=== PATIENT | female | born 1955 | race African-American/Black ===

== ENCOUNTER 2017-05-28 13:54 | Inpatient (IN) | payer MEDICAID, OTHER ==
[~2017-05-28] VITALS: Ht 167.6 cm; Wt 140.2 kg
[~2017-05-28 13:54] MED LIST: ALLO100T PO; AMLO10TA4 PO; BENA20TA3 PO; COLC0.6T2 PO; HYDR-3927 PO; TRAM50TA73 PO
[2017-05-28] MEDS ORDERED: IOHEXOL-350 100 ML BOTTLE ONE (14:55)
[2017-05-28] MEDS ORDERED: SODIUM CHLORIDE 0.9% 10ML VIAL ONE (14:55)
[2017-05-28] MEDS ORDERED: ONDANSETRON HCL 4MG/2ML VIAL IV STA (14:56)
[2017-05-28] MEDS ORDERED: MORPHINE SULFATE 4 MG/ML CPJ (NOT FOR IM USE) IV STA (14:56)
[2017-05-28] MEDS ORDERED: HYDRALAZINE 20MG/ML VIAL IV ONE (15:00)
[2017-05-28] MEDS ORDERED: SODIUM CHLORIDE 0.9% 1000ML BAG (SEPSIS BOLUS) IV ONE (15:00)
[2017-05-28] MEDS ORDERED: METRONIDAZOLE 500 MG PREMIX 100 ML IV ONE (15:00)
[2017-05-28] MEDS ORDERED: LEVOFLOXACIN 750MG PREMIX 150 ML IV ONE ×2 (15:00→21:13)
[2017-05-28 15:40] LABS: EOSINOPHILS % 9.3 % (0.0-5.0); HEMATOCRIT. 37.1 % (36.0-48.0); LYMPHOCYTES % 21.2 % (20.0-50.0); MEAN CORPUSCULAR HEMOGLOBIN 25.8 pg (28.0-32.0); MEAN CORPUSCULAR VOLUME 79.7 fL (81.0-99.0); MEAN PLATELET VOLUME 8.2 fl (7.4-10.4); MONOCYTES % 8.2 % (2.0-8.0); NEUTROPHILS % 60.3 % (40.0-76.0); PLATELET 186 x1000/uL (130-400); RED BLOOD CELL COUNT 4.66 mill/uL (4.2-5.4); RED CELL DISTRIBUTION WIDTH 16.9 % (11.6-14.6)
[2017-05-28 15:45] LABS: PARTIAL THROMBOPLASTIN TIME 28.5 sec (23.4-31.0); PROTHROMBIN TIME 10.4 sec (9.4-11.6)
[2017-05-28 15:51] LABS: CARBON DIOXIDE 25 mEq/L (21-32); CHLORIDE 112 mEq/L (98-107)
[2017-05-28 15:57] LABS: TROPONIN I < 0.02 ng/mL (0.00-0.04)
[2017-05-28 17:27] LABS: CLARITY URINE CLEAR (CLEAR); COLOR URINE YELLOW (YELLOW); GLUCOSE URINE NEGATIVE (NEGATIVE); KETONES URINE NEGATIVE (NEGATIVE); LEUKOCYTE ESTERASE URINE NEGATIVE (NEGATIVE); NITRITE URINE NEGATIVE (NEGATIVE); OCCULT BLOOD URINE NEGATIVE (NEGATIVE); PH URINE 5.5 (4.5-8.0); PROTEIN URINE 3+ (NEGATIVE); SPECIFIC GRAVITY URINE 1.017 (1.005-1.030); UROBILINOGEN URINE 0.2 E.U./dL (0.2-1.0)
[2017-05-28 22:00] VITALS: BP 159/88
[2017-05-29] MEDS ORDERED: ACETAMINOPHEN 325MG TABLET PO PRN (00:30)
[2017-05-29] MEDS: DEXT 5%/0.45% NACL 1000ML 1,000 ML IV SCH ×2 (02:06→13:00)
[2017-05-29] MEDS: PIPERACILLIN/TAZ 3.375G PREMIX 50 ML IV SCH ×4 (02:07→20:43)
[2017-05-29 04:00] VITALS: BP 105/64
[2017-05-29 06:36] LABS: HEMOGLOBIN 11.6 g/dL (12.0-16.0); MEAN CORPUSCULAR HEMOGLOBIN 25.9 pg (28.0-32.0); MEAN CORPUSCULAR VOLUME 80.1 fL (81.0-99.0); PLATELET 160 x1000/uL (130-400); RED BLOOD CELL COUNT 4.49 mill/uL (4.2-5.4); RED CELL DISTRIBUTION WIDTH 16.6 % (11.6-14.6)
[2017-05-29] MEDS ORDERED: LISI-604 PO (06:51)
[2017-05-29] MEDS ORDERED: AMIT25TA9 PO (06:51)
[2017-05-29] MEDS ORDERED: GABA-290 PO (06:51)
[2017-05-29] MEDS ORDERED: AJ125 PO (06:51)
[2017-05-29] MEDS ORDERED: OXYB5TAB11 PO (06:51)
[2017-05-29] MEDS ORDERED: COLC0.6C PO (06:51)
[2017-05-29] MEDS ORDERED: OMEP40CA34 PO (06:51)
[2017-05-29] MEDS ORDERED: PNEUMOCOCCAL 23-VAL P-SAC VAC 0.5 ML IM ONE (09:00)
[2017-05-29 12:00] VITALS: BP 144/94
[2017-05-29 16:00] VITALS: BP 129/60
[2017-05-29] MEDS ORDERED: METR250T PO (16:30)
[2017-05-29 20:00] VITALS: BP 136/80
[2017-05-29] MEDS: HYDROMORPHONE HCL/PF 2MG/ML CPJ IV PRN ×2 (20:44→22:30)
[2017-05-30] VITALS: BP 118/58
[2017-05-30] MEDS ORDERED: ZOLPIDEM TARTRATE 5MG TABLET PO PRN (00:45)
[2017-05-30] MEDS: HYDROMORPHONE HCL/PF 2MG/ML CPJ IV PRN ×3 (01:30→06:38)
[2017-05-30] MEDS: DEXT 5%/0.45% NACL 1000ML 1,000 ML IV SCH ×2 (01:53→13:46)
[2017-05-30] MEDS: PIPERACILLIN/TAZ 3.375G PREMIX 50 ML IV SCH ×3 (02:00→13:45)
[2017-05-30 07:17] VITALS: BP 131/71
[2017-05-30 11:32] VITALS: BP 124/60
[2017-05-30] MEDS ORDERED: TRAMADOL 50MG TABLET PO PRN (11:45)
[2017-05-30 15:17] VITALS: BP 121/56
[2017-05-30] MEDS ORDERED: OXYBUTYNIN CHLORIDE 5MG TABLET PO SCH (17:00)
[2017-05-30 20:32] VITALS: BP 115/56
[2017-05-30 20:41] VITALS: BP 115/56
[2017-05-31] MEDS ORDERED: AMLODIPINE 10MG TABLET PO SCH (09:00)
[2017-05-31] MEDS ORDERED: COLCHICINE 0.6MG TABLET PO SCH (09:00)
[2017-05-31] MEDS ORDERED: LISINOPRIL 20MG TABLET PO SCH (09:00)
[2017-05-31] MEDS ORDERED: BENAZEPRIL 20MG TABLET PO SCH (09:00)
[2017-05-31] MEDS ORDERED: ALLOPURINOL 100 MG TABLET PO SCH (09:00)
[2017-05-31] MEDS ORDERED: AMITRIPTYLINE 25MG TABLET PO SCH (09:00)
== END 2017-05-30 22:35 | disposition home or self-care (01) | DRG 720 ==
LOC: ER 17:23 → 6WST 18:03 → EDBEDREQ 18:23 → ENRESERV 18:47 → CANRESERV 21:26
PROVIDERS: ADMIT Family Medicine; ATTEND Family Medicine
DX: A41.9 Sepsis, unspecified organism (principal); N17.1 Acute kidney failure with acute cortical necrosis; E44.1 Mild protein-calorie malnutrition; Z68.42 Body mass index [BMI] 45.0-49.9, adult; L02.211 Cutaneous abscess of abdominal wall; E66.01 Morbid (severe) obesity due to excess calories; F10.20 Alcohol dependence, uncomplicated; F17.210 Nicotine dependence, cigarettes, uncomplicated; Z90.711 Acquired absence of uterus with remaining cervical stump
CPT/HCPCS: 36415; 71010; 74177; 80048; 80053; 81001; 83605; 83690; 84484; 85025; 85027; 85610; 85730; 86850; 86900; 87040; 87086; 93005; 96365; 96375; 99285; A4216; J0360; J1170; J1956; J2270; J2405; J2543; J3490; J7030; Q9967

== ENCOUNTER 2017-11-01 02:32 | Inpatient (IN) | payer MEDICAID ==
[~2017-11-01] VITALS: Ht 167.6 cm; Wt 143.8 kg
[~2017-11-01 02:32] MED LIST changes: +AJ125 PO; +AMIT25TA9 PO; +AMLO10TA80 PO; +COLC0.6C PO; +DIPH25CA46 PO; +GABA-290 PO; +LISI-604 PO; +METR250T PO; +METR500T4 PO; +OMEP40CA34 PO; +OXYB5TAB11 PO; +SULF-288 PO; -TRAM50TA73 PO; +TRAM50TA94 PO
[2017-11-01 05:42] LABS: CHLORIDE 115 mEq/L (98-107)
[2017-11-01 05:43] LABS: HEMATOCRIT. 34.4 % (36.0-48.0); HEMOGLOBIN. 10.9 g/dL (12.0-16.0); MEAN CORPUSCULAR HEMOGLOBIN 24.9 pg (28.0-32.0); MEAN CORPUSCULAR VOLUME 78.4 fL (81.0-99.0); MEAN PLATELET VOLUME 8.2 fl (7.4-10.4); PLATELET 205 x1000/uL (130-400); RED BLOOD CELL COUNT 4.39 mill/uL (4.2-5.4); RED CELL DISTRIBUTION WIDTH 17.2 % (11.6-14.6)
[2017-11-01 05:45] LABS: PROTHROMBIN TIME 10.3 sec (9.4-11.6)
[2017-11-01] MEDS ORDERED: FUROSEMIDE 100MG/10ML VIAL IV STA (06:22)
[2017-11-01] MEDS ORDERED: ALBUTEROL (0.083%) 2.5MG/3ML NEB HHN ONE (06:30)
[2017-11-01] MEDS ORDERED: INSULIN REGULAR (HUMULIN R) 300UNITS/3ML IV ONE ×2 (06:30→07:45)
[2017-11-01] MEDS ORDERED: DEXTROSE 50% WATER 50ML SYRINGE IV ONE (06:30)
[2017-11-01] MEDS ORDERED: SODIUM POLYSTYRENE SULFONATE 15 G/60 ML BOT PO ONE (06:30)
[2017-11-01 07:10] LABS: KETONES URINE NEGATIVE (NEGATIVE); LEUKOCYTE ESTERASE URINE 3+ (NEGATIVE); NITRITE URINE POSITIVE (NEGATIVE); OCCULT BLOOD URINE 2+ (NEGATIVE); PH URINE 5.5 (4.5-8.0); PROTEIN URINE 2+ (NEGATIVE); SPECIFIC GRAVITY URINE 1.016 (1.005-1.030)
[2017-11-01 07:19] LABS: PLATELET ESTIMATE NORMAL
[2017-11-01 07:24] LABS: CLARITY URINE SL HAZY (CLEAR); COLOR URINE YELLOW (YELLOW)
[2017-11-01] MEDS ORDERED: CEFTRIAXONE 1 G PREMIX 50 ML IV ONE (07:30)
[2017-11-01] MEDS ORDERED: SODIUM CHLORIDE 0.9% 1,000 ML IV ONE (07:48)
[2017-11-01] MEDS ORDERED: CEFTRIAXONE 1 G PREMIX 50 ML IV SCH ×2 (10:00→12:15)
[2017-11-01] MEDS ORDERED: SODIUM POLYSTYRENE SULFONATE 15 G/60 ML BOT PO NR (10:50)
[2017-11-01 11:00] VITALS: BP_SYST 153; BP_SYST 158; BP_DIAS 78
[2017-11-01] MEDS ORDERED: MAGNESIUM/ALUMINUM HYDROXIDE/SIMETHICONE 30ML UDC PO PRN (12:15)
[2017-11-01] MEDS ORDERED: ONDANSETRON HCL 4MG/2ML VIAL IV PRN (12:15)
[2017-11-01] MEDS ORDERED: GUAIFENESIN 200MG/10ML SUGAR FREE UDC PO PRN (12:15)
[2017-11-01] MEDS ORDERED: IPRATROPIUM/ALBUTEROL 0.5-3(2.5)MG/3ML NEB INH PRN (12:15)
[2017-11-01] MEDS ORDERED: ACETAMINOPHEN 325MG TABLET PO PRN ×2 (12:15→12:45)
[2017-11-01] MEDS ORDERED: DIPHENHYDRAMINE 50MG/ML VIAL IV PRN (12:15)
[2017-11-01] MEDS ORDERED: DOCUSATE SODIUM 100MG CAPSULE PO PRN (12:15)
[2017-11-01] MEDS ORDERED: CLONIDINE 0.1MG TABLET PO PRN (12:15)
[2017-11-01] MEDS ORDERED: HYDROCODONE/ACETAMINOPHEN 5/325MG TABLET PO PRN (12:45)
[2017-11-01 12:54] LABS: TOTAL IRON BINDING CAPACITY 320 ug/dL (250-450)
[2017-11-01 13:00] VITALS: BP 158/88
[2017-11-01] MEDS: DEXT 5%/0.45% NACL 1000ML 1,000 ML IV SCH (13:06)
[2017-11-01] MEDS: ENOXAPARIN 40MG/0.4ML SYR SUBCUT SCH (13:12)
[2017-11-01] MEDS: HYDROCODONE/ACETAMINOPHEN 5/325MG TABLET PO PRN (13:13)
[2017-11-01] MEDS ORDERED: LIDOCAINE HCL/PF 1% 2ML VIAL ONE (14:04)
[2017-11-01 16:00] VITALS: BP 149/77
[2017-11-01 20:00] VITALS: BP_SYST 169; BP_SYST 90; BP_DIAS 46; BP_DIAS 69
[2017-11-01 20:21] LABS: BG BASE EXCESS -11.1 mmol/L (-2.0-2.0); BG CARBOXYHEMOGLOBIN 0.3 % (0.5-1.5); BG FRACTION INSPIRED OXYGEN 28; BG HCO3 ACT 14.5 mmol/L (22.0-26.0); BG METHEMOGLOBIN 0.4 % (0.0-1.5); BG OXYHEMOGLOBIN 96.3 % (94.0-97.0); BG PCO2 31.7 mmHg (35.0-45.0); BG PH 7.278 (7.350-7.450); BG PO2 96.1 mmHg (75.0-100.0); BG SAMPLE SITE LEFT BRACHIAL; BG VENT MODE NASAL CANNULA
[2017-11-01] MEDS ORDERED: SODIUM BICARBONATE 8.4% 1 MEQ/ML 50ML SYR IV NR (21:30)
[2017-11-02] VITALS (7 sets, daily range): BP systolic 80–128; BP diastolic 41–72
[2017-11-02] MEDS: IPRATROPIUM/ALBUTEROL 0.5-3(2.5)MG/3ML NEB INH SCH ×6 (00:45→21:19)
[2017-11-02] MEDS: HYDROCODONE/ACETAMINOPHEN 5/325MG TABLET PO PRN ×2 (04:52→17:05)
[2017-11-02 06:27] LABS: CHLORIDE 113 mEq/L (98-107); T4 FREE 0.99 ng/dL (0.76-1.46)
[2017-11-02 06:35] LABS: BASOPHILS % 0.3 % (0.0-2.0); EOSINOPHILS % 1.7 % (0.0-5.0); HEMATOCRIT. 30.1 % (36.0-48.0); HEMOGLOBIN. 9.7 g/dL (12.0-16.0); LYMPHOCYTES % 9.3 % (20.0-50.0); MEAN CORPUSCULAR HEMOGLOBIN 25.4 pg (28.0-32.0); MEAN CORPUSCULAR VOLUME 78.5 fL (81.0-99.0); MEAN PLATELET VOLUME 8.5 fl (7.4-10.4); MONOCYTES % 9.8 % (2.0-8.0); NEUTROPHILS % 78.9 % (40.0-76.0); PLATELET 143 x1000/uL (130-400); RED BLOOD CELL COUNT 3.83 mill/uL (4.2-5.4); RED CELL DISTRIBUTION WIDTH 17.5 % (11.6-14.6)
[2017-11-02] MEDS: CITRIC ACID/SODIUM CITRATE SOLN 30ML UDC PO SCH ×3 (08:42→17:07)
[2017-11-02] MEDS: ENOXAPARIN 40MG/0.4ML SYR SUBCUT SCH (08:42)
[2017-11-02] MEDS: CEFTRIAXONE 1 G PREMIX 50 ML IV SCH (08:43)
[2017-11-02 10:27] LABS: BG BASE EXCESS -8.4 mmol/L (-2.0-2.0); BG CARBOXYHEMOGLOBIN 0.3 % (0.5-1.5); BG DEOXYHEMOGLOBIN 4.1 % (0.0-5.0); BG FRACTION INSPIRED OXYGEN 21; BG METHEMOGLOBIN 0.4 % (0.0-1.5); BG OXYGEN SATURATION 95.9 % (92.0-98.5); BG OXYHEMOGLOBIN 95.2 % (94.0-97.0); BG PCO2 40.5 mmHg (35.0-45.0); BG PH 7.265 (7.350-7.450); BG PO2 86.9 mmHg (75.0-100.0); BG SAMPLE SITE RIGHT RADIAL; BG TOTAL HEMOGLOBIN 9.9 g/dL (12.0-18.0); BG VENT MODE ROOM AIR
[2017-11-02] MEDS: DEXT 5%/0.45% NACL 1000ML 1,000 ML IV SCH ×2 (13:29→17:38)
[2017-11-02 18:00] LABS: CREATINE KINASE 1208 IU/L (26-192)
[2017-11-03] VITALS: BP 111/61
[2017-11-03] MEDS: IPRATROPIUM/ALBUTEROL 0.5-3(2.5)MG/3ML NEB INH SCH ×6 (00:06→21:10)
[2017-11-03 04:00] VITALS: BP 114/52
[2017-11-03] MEDS: HYDROCODONE/ACETAMINOPHEN 5/325MG TABLET PO PRN ×3 (05:41→20:14)
[2017-11-03 06:35] LABS: BASOPHILS % 0.4 % (0.0-2.0); EOSINOPHILS % 7.6 % (0.0-5.0); HEMATOCRIT. 31.5 % (36.0-48.0); LYMPHOCYTES % 11.8 % (20.0-50.0); MEAN CORPUSCULAR HEMOGLOBIN 24.8 pg (28.0-32.0); MEAN PLATELET VOLUME 8.6 fl (7.4-10.4); MONOCYTES % 11.8 % (2.0-8.0); NEUTROPHILS % 68.4 % (40.0-76.0); PLATELET 134 x1000/uL (130-400); RED BLOOD CELL COUNT 4.04 mill/uL (4.2-5.4); RED CELL DISTRIBUTION WIDTH 17.6 % (11.6-14.6)
[2017-11-03 08:00] VITALS: BP 142/66
[2017-11-03] MEDS: BUDESONIDE 0.5MG/2ML NEB HHN SCH ×2 (08:22→21:10)
[2017-11-03] MEDS: CITRIC ACID/SODIUM CITRATE SOLN 30ML UDC PO SCH ×3 (08:32→16:52)
[2017-11-03] MEDS: ENOXAPARIN 40MG/0.4ML SYR SUBCUT SCH (08:32)
[2017-11-03] MEDS: CEFTRIAXONE 1 G PREMIX 50 ML IV SCH (08:32)
[2017-11-03] MEDS ORDERED: SODIUM POLYSTYRENE SULFONATE 15 G/60 ML BOT PO NR ×2 (10:00→10:30)
[2017-11-03 12:00] VITALS: BP 113/57
[2017-11-03 16:00] VITALS: BP 119/76
[2017-11-03 16:18] LABS: CREATINE KINASE 725 IU/L (26-192); CREATINE KINASE MB FRACTION 2.2 ng/mL (0.5-3.6); TROPONIN I < 0.02 ng/mL (0.00-0.04)
[2017-11-03 20:00] VITALS: BP 114/60
[2017-11-04] VITALS: BP 123/71
[2017-11-04] MEDS: HYDROCODONE/ACETAMINOPHEN 5/325MG TABLET PO PRN ×4 (00:36→22:01)
[2017-11-04] MEDS: IPRATROPIUM/ALBUTEROL 0.5-3(2.5)MG/3ML NEB INH SCH ×7 (00:37→20:00)
[2017-11-04 04:00] VITALS: BP 126/50
[2017-11-04 07:20] LABS: HEMATOCRIT. 27.8 % (36.0-48.0); HEMOGLOBIN. 8.9 g/dL (12.0-16.0); MEAN CORPUSCULAR HEMOGLOBIN 25.1 pg (28.0-32.0); MEAN PLATELET VOLUME 8.6 fl (7.4-10.4); PLATELET 147 x1000/uL (130-400); RED BLOOD CELL COUNT 3.56 mill/uL (4.2-5.4); RED CELL DISTRIBUTION WIDTH 17.4 % (11.6-14.6)
[2017-11-04 08:00] VITALS: BP 150/72
[2017-11-04] MEDS: BUDESONIDE 0.5MG/2ML NEB HHN SCH (08:31)
[2017-11-04] MEDS: CITRIC ACID/SODIUM CITRATE SOLN 30ML UDC PO SCH (09:41)
[2017-11-04] MEDS: CEFTRIAXONE 1 G PREMIX 50 ML IV SCH (09:41)
[2017-11-04] MEDS: ENOXAPARIN 40MG/0.4ML SYR SUBCUT SCH (09:42)
[2017-11-04 12:00] VITALS: BP 121/55
[2017-11-04] MEDS: MEROPENEM 500 MG in SODIUM CHLORIDE 0.9% 50 ML IV SCH ×2 (14:35→22:01)
[2017-11-04 16:00] VITALS: BP 128/55
[2017-11-04 16:20] LABS: PLATELET ESTIMATE NORMAL
[2017-11-04 20:00] VITALS: BP 116/53
[2017-11-05] VITALS (7 sets, daily range): BP systolic 104–143; BP diastolic 62–88
[2017-11-05] MEDS: HYDROCODONE/ACETAMINOPHEN 5/325MG TABLET PO PRN ×4 (03:37→17:22)
[2017-11-05] MEDS: MEROPENEM 500 MG in SODIUM CHLORIDE 0.9% 50 ML IV SCH ×2 (05:57→14:03)
[2017-11-05 06:31] LABS: BASOPHILS % 0.6 % (0.0-2.0); EOSINOPHILS % 8.5 % (0.0-5.0); HEMOGLOBIN. 10.3 g/dL (12.0-16.0); LYMPHOCYTES % 19.2 % (20.0-50.0); MEAN CORPUSCULAR HEMOGLOBIN 24.8 pg (28.0-32.0); MEAN CORPUSCULAR VOLUME 77.3 fL (81.0-99.0); MONOCYTES % 11.8 % (2.0-8.0); NEUTROPHILS % 59.9 % (40.0-76.0); PLATELET 171 x1000/uL (130-400); RED BLOOD CELL COUNT 4.14 mill/uL (4.2-5.4); RED CELL DISTRIBUTION WIDTH 17.3 % (11.6-14.6)
[2017-11-05] MEDS ORDERED: SODIUM POLYSTYRENE SULFONATE 15 G/60 ML BOT PO NR (10:00)
[2017-11-05] MEDS: ENOXAPARIN 40MG/0.4ML SYR SUBCUT SCH (11:31)
[2017-11-05] MEDS: BUDESONIDE 0.5MG/2ML NEB HHN SCH (20:00)
[2017-11-05] MEDS: IPRATROPIUM/ALBUTEROL 0.5-3(2.5)MG/3ML NEB INH SCH (20:00)
[2017-11-05] MEDS ORDERED: ENOXAPARIN 40MG/0.4ML SYR SUBCUT SCH (21:00)
== END 2017-11-05 18:45 | disposition home health service (06) | DRG 721 ==
LOC: ER 03:15 → 7WST 06:46 → EDBEDREQ 07:05 → ENRESERV 09:42
PROVIDERS: ADMIT Internal Medicine; ATTEND Internal Medicine
PROC: 02HV33Z Insertion of Infusion Device into Superior Vena Cava, Percutaneous Approach (ICD-10-PCS; principal; 2017-11-05)
PROC: B5181ZA Fluoroscopy of Superior Vena Cava using Low Osmolar Contrast, Guidance (ICD-10-PCS; 2017-11-05)
PROC: B548ZZA Ultrasonography of Superior Vena Cava, Guidance (ICD-10-PCS; 2017-11-05)
DX: T81.4XXA Infection following a procedure, initial encounter (principal); J96.00 Acute respiratory failure, unspecified whether with hypoxia or hypercapnia; I50.33 Acute on chronic diastolic (congestive) heart failure; A41.9 Sepsis, unspecified organism; N17.9 Acute kidney failure, unspecified; J44.0 Chronic obstructive pulmonary disease with (acute) lower respiratory infection; M62.82 Rhabdomyolysis; Z68.43 Body mass index [BMI] 50.0-59.9, adult; E44.0 Moderate protein-calorie malnutrition; E66.01 Morbid (severe) obesity due to excess calories; N39.0 Urinary tract infection, site not specified; E87.5 Hyperkalemia; J20.9 Acute bronchitis, unspecified; B96.20 Unspecified Escherichia coli [E. coli] as the cause of diseases classified elsewhere; B96.89 Other specified bacterial agents as the cause of diseases classified elsewhere; D50.9 Iron deficiency anemia, unspecified; E78.00 Pure hypercholesterolemia, unspecified; E78.5 Hyperlipidemia, unspecified; I13.0 Hypertensive heart and chronic kidney disease with heart failure and stage 1 through stage 4 chronic kidney disease, or unspecified chronic kidney disease; J44.1 Chronic obstructive pulmonary disease with (acute) exacerbation; K21.9 Gastro-esophageal reflux disease without esophagitis; L02.211 Cutaneous abscess of abdominal wall; M10.9 Gout, unspecified; N18.9 Chronic kidney disease, unspecified; Z90.5 Acquired absence of kidney; Z79.899 Other long term (current) drug therapy
CPT/HCPCS: 36415; 36569; 36600; 71045; 76705; 76770; 76937; 77001; 80048; 80053; 81001; 82375; 82550; 82553; 82570; 82805; 82962; 83540; 83550; 83880; 84132; 84300; 84439; 84443; 84481; 84484; 85025; 85610; 87070; 87077; 87086; 87186; 87205; 93005; 93306; 93970; 94640; 94644; 97162; 99285; C1725; C1769; J0696; J1200; J1650; J1815; J1940; J2185; J3490; J7030; J7050; J7611; J7620; J7626; A4315

== ENCOUNTER 2018-02-15 12:33 | Inpatient (IN) | payer MEDICAID ==
[~2018-02-15] VITALS: Ht 172.7 cm; Wt 120.2 kg
[~2018-02-15 12:33] MED LIST changes: -AJ125 PO; -AMLO10TA80 PO; -COLC0.6C PO; -HYDR-3927 PO; +LOSA50TA20 PO; -METR250T PO; -METR500T4 PO; +NAPR-681 PO; -SULF-288 PO; +SULF1TAB48 MT
[2018-02-15] MEDS ORDERED: VANCOMYCIN 1 G PREMIX 200 ML IV SCH (14:45)
[2018-02-15] MEDS ORDERED: MORPHINE SULFATE 0.5MG/ML SYR 1ML(NEO) IV ONE (14:45)
[2018-02-15] MEDS ORDERED: SODIUM CHLORIDE 0.9% 1,000 ML IV ONE (15:17)
[2018-02-15] MEDS ORDERED: MORPHINE SULFATE 4 MG/ML CPJ (NOT FOR IM USE) IV ONE (15:30)
[2018-02-15 15:54] LABS: BASOPHILS % 0.7 % (0.0-2.0); EOSINOPHILS % 12.9 % (0.0-5.0); HEMATOCRIT. 33.6 % (36.0-48.0); HEMOGLOBIN. 10.5 g/dL (12.0-16.0); LYMPHOCYTES % 19.7 % (20.0-50.0); MEAN CORPUSCULAR HEMOGLOBIN 22.9 pg (28.0-32.0); MEAN CORPUSCULAR VOLUME 73.3 fL (81.0-99.0); MEAN PLATELET VOLUME 7.9 fl (7.4-10.4); MONOCYTES % 10.2 % (2.0-8.0); NEUTROPHILS % 56.5 % (40.0-76.0); PLATELET 275 x1000/uL (130-400); RED BLOOD CELL COUNT 4.58 mill/uL (4.2-5.4); RED CELL DISTRIBUTION WIDTH 17.8 % (11.6-14.6)
[2018-02-15 15:57] LABS: CHLORIDE 107 mEq/L (98-107)
[2018-02-15 16:44] LABS: PROTHROMBIN TIME 10.6 sec (9.4-11.6)
[2018-02-15 17:54] LABS: CLARITY URINE CLEAR (CLEAR); COLOR URINE YELLOW (YELLOW); KETONES URINE NEGATIVE (NEGATIVE); LEUKOCYTE ESTERASE URINE NEGATIVE (NEGATIVE); NITRITE URINE NEGATIVE (NEGATIVE); OCCULT BLOOD URINE NEGATIVE (NEGATIVE); PROTEIN URINE 2+ (NEGATIVE); SPECIFIC GRAVITY URINE 1.016 (1.005-1.030); UROBILINOGEN URINE 0.2 E.U./dL (0.2-1.0)
[2018-02-15 20:00] VITALS: BP 157/79
[2018-02-15] MEDS ORDERED: ACETAMINOPHEN 325MG TABLET PO PRN (21:45)
[2018-02-15] MEDS ORDERED: ONDANSETRON HCL 4MG/2ML VIAL IV PRN (21:45)
[2018-02-15] MEDS ORDERED: MAGNESIUM/ALUMINUM HYDROXIDE/SIMETHICONE 30ML UDC PO PRN (21:45)
[2018-02-15] MEDS ORDERED: CLONIDINE 0.1MG TABLET PO PRN (21:45)
[2018-02-15] MEDS ORDERED: IPRATROPIUM/ALBUTEROL 0.5-3(2.5)MG/3ML NEB INH PRN (21:45)
[2018-02-15 22:30] VITALS: BP 157/79
[2018-02-15] MEDS: SODIUM CHLORIDE 0.9% 1,000 ML IV SCH (23:43)
[2018-02-15] MEDS: PIPERACILLIN/TAZ 3.375G PREMIX 50 ML IV SCH (23:43)
[2018-02-15] MEDS: HYDROCODONE/ACETAMINOPHEN 5/325MG TABLET PO PRN (23:44)
[2018-02-16] VITALS: BP 141/78
[2018-02-16] MEDS ORDERED: VANCOMYCIN 1 G PREMIX 200 ML IV NR (01:00)
[2018-02-16 03:50] LABS: *AMPHETAMINES SCREEN URINE NEGATIVE (NEGATIVE); *BARBITURATES SCREEN URINE NEGATIVE (NEGATIVE); *BENZODIAZEPINES SCREEN URINE NEGATIVE (NEGATIVE); *COCAINE SCREEN URINE NEGATIVE (NEGATIVE); METHADONE URINE SCREEN NEGATIVE (NEGATIVE)
[2018-02-16 03:51] LABS: CANNABINOID URINE SCREEN NEGATIVE (NEGATIVE); OPIATES URINE SCREEN PRESUMTIVE POSITIVE (NEGATIVE); PHENCYCLIDINE URINE SCREEN NEGATIVE (NEGATIVE)
[2018-02-16 04:00] VITALS: BP 137/62
[2018-02-16] MEDS: PIPERACILLIN/TAZ 3.375G PREMIX 50 ML IV SCH ×3 (05:23→22:58)
[2018-02-16] MEDS: HYDROCODONE/ACETAMINOPHEN 5/325MG TABLET PO PRN (06:02)
[2018-02-16 07:01] LABS: BASOPHILS % 0.6 % (0.0-2.0); EOSINOPHILS % 14.2 % (0.0-5.0); HEMATOCRIT. 32.4 % (36.0-48.0); HEMOGLOBIN. 10.1 g/dL (12.0-16.0); LYMPHOCYTES % 19.5 % (20.0-50.0); MEAN CORPUSCULAR HEMOGLOBIN 22.8 pg (28.0-32.0); MEAN CORPUSCULAR VOLUME 73.3 fL (81.0-99.0); MONOCYTES % 10.5 % (2.0-8.0); NEUTROPHILS % 55.2 % (40.0-76.0); PLATELET 262 x1000/uL (130-400); RED BLOOD CELL COUNT 4.42 mill/uL (4.2-5.4); RED CELL DISTRIBUTION WIDTH 17.9 % (11.6-14.6)
[2018-02-16 08:00] VITALS: BP 144/47
[2018-02-16] MEDS: HEPARIN 5000 UNITS/ML VIAL SUBCUT SCH ×2 (09:18→23:01)
[2018-02-16] MEDS ORDERED: VANCOMYCIN 1 G PREMIX 200 ML IV SCH (11:00)
[2018-02-16 12:11] VITALS: BP 118/57
[2018-02-16] MEDS: SODIUM CHLORIDE 0.9% 1,000 ML IV SCH ×2 (12:26→22:58)
[2018-02-16 16:00] VITALS: BP 122/58
[2018-02-16] MEDS ORDERED: HYDROCODONE/ACETAMINOPHEN 5/325MG TABLET PO PRN (19:15)
[2018-02-16] MEDS ORDERED: MORPHINE SULFATE 4 MG/ML CPJ (NOT FOR IM USE) IV PRN (19:15)
[2018-02-16 20:00] VITALS: BP 126/63
[2018-02-16] MEDS: HYDROCODONE/ACETAMINOPHEN 10/325MG TABLET PO PRN (20:49)
[2018-02-16] MEDS ORDERED: VANCOMYCIN 750 MG PREMIX 150 ML IV SCH (21:00)
[2018-02-16 22:28] LABS: CREATINE KINASE 54 IU/L (26-192)
[2018-02-16 22:29] LABS: CREATINE KINASE MB FRACTION < 0.5 ng/mL (0.5-3.6)
[2018-02-17] VITALS: BP 131/70
[2018-02-17] MEDS: HYDROCODONE/ACETAMINOPHEN 10/325MG TABLET PO PRN ×2 (02:54→12:05)
[2018-02-17 04:00] VITALS: BP 132/70
[2018-02-17] MEDS: PIPERACILLIN/TAZ 3.375G PREMIX 50 ML IV SCH ×4 (07:00→22:20)
[2018-02-17 08:00] VITALS: BP 130/70
[2018-02-17] MEDS: HEPARIN 5000 UNITS/ML VIAL SUBCUT SCH ×2 (08:28→21:29)
[2018-02-17 10:06] LABS: BASOPHILS % 0.9 % (0.0-2.0); EOSINOPHILS % 13.2 % (0.0-5.0); HEMATOCRIT. 32.2 % (36.0-48.0); LYMPHOCYTES % 18.7 % (20.0-50.0); MEAN CORPUSCULAR HEMOGLOBIN 22.8 pg (28.0-32.0); MEAN CORPUSCULAR VOLUME 73.2 fL (81.0-99.0); MONOCYTES % 10.2 % (2.0-8.0); PLATELET 265 x1000/uL (130-400); RED BLOOD CELL COUNT 4.39 mill/uL (4.2-5.4); RED CELL DISTRIBUTION WIDTH 17.7 % (11.6-14.6)
[2018-02-17 10:48] LABS: PHOSPHORUS 3.3 mg/dL (2.5-4.9)
[2018-02-17 12:00] VITALS: BP 131/62
[2018-02-17] MEDS ORDERED: LIDOCAINE HCL 1% 20ML VIAL (Pyxis) INJ ONE (12:13)
[2018-02-17] MEDS: SODIUM CHLORIDE 0.9% 1,000 ML IV SCH ×2 (12:30→21:29)
[2018-02-17 16:00] VITALS: BP 150/75
[2018-02-17 20:00] VITALS: BP 148/70
[2018-02-17] MEDS: HYDROCODONE/ACETAMINOPHEN 5/325MG TABLET PO PRN (21:30)
[2018-02-18] VITALS: BP 158/77
[2018-02-18 04:00] VITALS: BP 129/71
[2018-02-18 08:00] VITALS: BP 148/68
[2018-02-18] MEDS: PIPERACILLIN/TAZ 3.375G PREMIX 50 ML IV SCH ×2 (09:41→17:07)
[2018-02-18] MEDS: SODIUM CHLORIDE 0.9% 1,000 ML IV SCH (09:42)
[2018-02-18] MEDS: HEPARIN 5000 UNITS/ML VIAL SUBCUT SCH (09:42)
[2018-02-18] MEDS: HYDROCODONE/ACETAMINOPHEN 10/325MG TABLET PO PRN (09:43)
[2018-02-18 12:19] VITALS: BP 111/57
[2018-02-18 13:29] LABS: BASOPHILS % 0.8 % (0.0-2.0); EOSINOPHILS % 12.6 % (0.0-5.0); HEMATOCRIT. 30.7 % (36.0-48.0); HEMOGLOBIN. 9.6 g/dL (12.0-16.0); LYMPHOCYTES % 22.3 % (20.0-50.0); MEAN CORPUSCULAR HEMOGLOBIN 22.9 pg (28.0-32.0); MEAN CORPUSCULAR VOLUME 73.5 fL (81.0-99.0); MEAN PLATELET VOLUME 8.4 fl (7.4-10.4); MONOCYTES % 8.5 % (2.0-8.0); NEUTROPHILS % 55.8 % (40.0-76.0); PLATELET 265 x1000/uL (130-400); RED BLOOD CELL COUNT 4.18 mill/uL (4.2-5.4)
[2018-02-18 13:59] LABS: PHOSPHORUS 3.3 mg/dL (2.5-4.9)
[2018-02-18 16:00] VITALS: BP 127/59
[2018-02-18 17:38] VITALS: BP 127/59
[2018-02-19 10:08] LABS: COMPLEMENT C3 170 mg/dL (82-167)
== END 2018-02-18 17:55 | disposition home health service (06) | DRG 721 ==
LOC: ER 12:44 → 6EST 19:54 → EDBEDREQ 19:59 → EDBEDREQTM 19:59 → EDBEDREQSVC 19:59 → ENRESERV 20:08
PROVIDERS: ADMIT Internal Medicine; ATTEND Internal Medicine
PROC: 05H533Z Insertion of Infusion Device into Right Subclavian Vein, Percutaneous Approach (ICD-10-PCS; principal; 2018-02-17)
PROC: B546ZZA Ultrasonography of Right Subclavian Vein, Guidance (ICD-10-PCS; 2018-02-17)
PROC: B5161ZA Fluoroscopy of Right Subclavian Vein using Low Osmolar Contrast, Guidance (ICD-10-PCS; 2018-02-17)
DX: T85.79XA Infection and inflammatory reaction due to other internal prosthetic devices, implants and grafts, initial encounter (principal); N17.0 Acute kidney failure with tubular necrosis; K63.2 Fistula of intestine; E44.0 Moderate protein-calorie malnutrition; I12.0 Hypertensive chronic kidney disease with stage 5 chronic kidney disease or end stage renal disease; N18.3 Chronic kidney disease, stage 3 (moderate); L03.311 Cellulitis of abdominal wall; E66.01 Morbid (severe) obesity due to excess calories; R10.33 Periumbilical pain; D64.9 Anemia, unspecified; L98.8 Other specified disorders of the skin and subcutaneous tissue; Y83.2 Surgical operation with anastomosis, bypass or graft as the cause of abnormal reaction of the patient, or of later complication, without mention of misadventure at the time of the procedure; Z99.2 Dependence on renal dialysis; Z68.41 Body mass index [BMI] 40.0-44.9, adult; Z82.49 Family history of ischemic heart disease and other diseases of the circulatory system
CPT/HCPCS: 36415; 36569; 71045; 74176; 76937; 77001; 80048; 80053; 80061; 80305; 81003; 82550; 82553; 83690; 83735; 84100; 84145; 84443; 84484; 85025; 85610; 86160; 87040; 87070; 87077; 87186; 87205; 93005; 93970; 96365; 96366; 96375; 99285; C1725; J1644; J2270; J2543; J3370; J3490; J7030

== ENCOUNTER 2018-04-21 13:55 | Emergency (ER) | payer MEDICAID ==
[~2018-04-21] VITALS: Ht 167.6 cm; Wt 159.0 kg
[~2018-04-21 13:55] MED LIST changes: -ALLO100T PO; -BENA20TA3 PO; -NAPR-681 PO; -OXYB5TAB11 PO; -SULF1TAB48 MT
[2018-04-21] MEDS ORDERED: KETOROLAC 30MG/ML VIAL IV STA (15:28)
[2018-04-21] MEDS ORDERED: ONDANSETRON HCL 4MG/2ML VIAL IV STA (15:28)
[2018-04-21] MEDS ORDERED: SODIUM CHLORIDE 0.9% 1,000 ML IV ONE ×2 (15:28)
[2018-04-21] MEDS ORDERED: MORPHINE SULFATE 4 MG/ML CPJ (NOT FOR IM USE) IV STA (15:28)
[2018-04-21] MEDS ORDERED: VANCOMYCIN 1 G PREMIX 200 ML IV ONE (15:30)
[2018-04-21] MEDS ORDERED: PIPERACILLIN/TAZ 3.375G PREMIX 50 ML IV ONE (15:30)
[2018-04-21 16:18] LABS: BASOPHILS % 0.5 % (0.0-2.0); EOSINOPHILS % 5.1 % (0.0-5.0); HEMATOCRIT. 29.4 % (36.0-48.0); HEMOGLOBIN. 9.1 g/dL (12.0-16.0); LYMPHOCYTES % 20.4 % (20.0-50.0); MEAN CORPUSCULAR HEMOGLOBIN 21.3 pg (28.0-32.0); MEAN CORPUSCULAR VOLUME 68.8 fL (81.0-99.0); MEAN PLATELET VOLUME 7.7 fl (7.4-10.4); MONOCYTES % 10.6 % (2.0-8.0); NEUTROPHILS % 63.4 % (40.0-76.0); PLATELET 254 x1000/uL (130-400); RED BLOOD CELL COUNT 4.27 mill/uL (4.2-5.4); RED CELL DISTRIBUTION WIDTH 19.9 % (11.6-14.6)
[2018-04-21 16:24] LABS: CHLORIDE 110 mEq/L (98-107); PROTHROMBIN TIME 10.5 sec (9.4-11.6)
[2018-04-21 16:36] LABS: PLATELET ESTIMATE NORMAL
[2018-04-21 18:22] VITALS: BP 125/55
== END 2018-04-21 20:02 | disposition home or self-care (01) ==
LOC: ER 13:55 → CANBEDREQ 18:20 → ER 20:02
DX: T81.4XXA Infection following a procedure, initial encounter (principal); R10.9 Unspecified abdominal pain; E11.9 Type 2 diabetes mellitus without complications; I10 Essential (primary) hypertension; E66.9 Obesity, unspecified; M10.9 Gout, unspecified; K21.9 Gastro-esophageal reflux disease without esophagitis; E78.00 Pure hypercholesterolemia, unspecified; Z90.49 Acquired absence of other specified parts of digestive tract
CPT/HCPCS: 36415; 71045; 74176; 80053; 83605; 83880; 84484; 85025; 85610; 87040; 93005; 96365; 96366; 96368; 96375; 99285; J1885; J2270; J2405; J2543; J3370; J7030; 81003

== ENCOUNTER 2018-06-15 14:48 | Inpatient (IN) | payer MEDICAID ==
[~2018-06-15] VITALS: Ht 167.6 cm; Wt 135.6 kg
[~2018-06-15 14:48] MED LIST changes: -LISI-604 PO
[2018-06-15] MEDS ORDERED: MORPHINE SULFATE 4 MG/ML CPJ (NOT FOR IM USE) IV STA (19:17)
[2018-06-15] MEDS ORDERED: SODIUM CHLORIDE 0.9% 1,000 ML IV ONE (19:17)
[2018-06-15] MEDS ORDERED: ONDANSETRON HCL 4MG/2ML INJ IV STA (19:17)
[2018-06-15 20:36] LABS: BASOPHILS % 0.8 % (0.0-2.0); HEMATOCRIT. 35.2 % (36.0-48.0); HEMOGLOBIN. 10.6 g/dL (12.0-16.0); LYMPHOCYTES % 19.7 % (20.0-50.0); MEAN CORPUSCULAR HEMOGLOBIN 20.6 pg (28.0-32.0); MEAN CORPUSCULAR VOLUME 68.5 fL (81.0-99.0); MEAN PLATELET VOLUME 8.5 fl (7.4-10.4); MONOCYTES % 7.8 % (2.0-8.0); NEUTROPHILS % 65.7 % (40.0-76.0); PLATELET 312 x1000/uL (130-400); RED BLOOD CELL COUNT 5.13 mill/uL (4.2-5.4); RED CELL DISTRIBUTION WIDTH 21.1 % (11.6-14.6)
[2018-06-15 20:40] LABS: CHLORIDE 106 mEq/L (98-107)
[2018-06-15 20:59] LABS: PLATELET ESTIMATE NORMAL
[2018-06-15] MEDS ORDERED: CEFTRIAXONE 1 G PREMIX 50 ML IV ONE (23:00)
[2018-06-15] MEDS ORDERED: VANCOMYCIN 1 G PREMIX 200 ML IV SCH (23:00)
[2018-06-15] MEDS ORDERED: METRONIDAZOLE 500 MG PREMIX 100 ML IV ONE (23:00)
[2018-06-15] MEDS ORDERED: MORPHINE SULFATE 4 MG/ML CPJ (NOT FOR IM USE) IV ONE (23:00)
[2018-06-16] VITALS (7 sets, daily range): BP systolic 102–168; BP diastolic 44–96
[2018-06-16] MEDS ORDERED: ATOR40TA70 MT (04:51)
[2018-06-16] MEDS ORDERED: ACET-2708 MT (04:51)
[2018-06-16] MEDS ORDERED: SODIUM CHLORIDE 0.9% 1,000 ML IV SCH (05:39)
[2018-06-16] MEDS ORDERED: HYDROCODONE/ACETAMINOPHEN 10/325MG TABLET PO PRN (05:45)
[2018-06-16] MEDS ORDERED: ONDANSETRON HCL 4MG/2ML INJ IV PRN (05:45)
[2018-06-16] MEDS ORDERED: DOCUSATE SODIUM 100MG CAPSULE PO PRN (05:45)
[2018-06-16] MEDS ORDERED: ACETAMINOPHEN 650MG SUPP PR PRN (05:45)
[2018-06-16] MEDS ORDERED: HYDROCODONE/ACETAMINOPHEN 5/325MG TABLET PO PRN (05:45)
[2018-06-16] MEDS ORDERED: LORAZEPAM 0.5MG TABLET PO PRN (05:45)
[2018-06-16] MEDS ORDERED: MORPHINE SULFATE 4 MG/ML CPJ (NOT FOR IM USE) IV PRN (05:45)
[2018-06-16] MEDS ORDERED: CLONIDINE 0.1MG TABLET PO PRN (05:45)
[2018-06-16] MEDS ORDERED: IPRATROPIUM/ALBUTEROL 0.5-3(2.5)MG/3ML NEB INH PRN (05:45)
[2018-06-16] MEDS ORDERED: OMEPRAZOLE 20MG CAPSULE EXTENDED RELEASE PO SCH (10:00)
[2018-06-16] MEDS ORDERED: ATORVASTATIN CALCIUM 40MG TABLET PO SCH (10:00)
[2018-06-16] MEDS ORDERED: AMLODIPINE 10MG TABLET PO SCH (10:00)
[2018-06-16] MEDS ORDERED: LOSARTAN POTASSIUM 50 MG TABLET PO SCH (10:15)
[2018-06-16 13:14] LABS: *AMPHETAMINES SCREEN URINE NEGATIVE (NEGATIVE); *BARBITURATES SCREEN URINE NEGATIVE (NEGATIVE); *BENZODIAZEPINES SCREEN URINE NEGATIVE (NEGATIVE); *COCAINE SCREEN URINE NEGATIVE (NEGATIVE)
[2018-06-16 13:15] LABS: CANNABINOID URINE SCREEN NEGATIVE (NEGATIVE); METHADONE URINE SCREEN NEGATIVE (NEGATIVE); OPIATES URINE SCREEN PRESUMTIVE POSITIVE (NEGATIVE); PHENCYCLIDINE URINE SCREEN NEGATIVE (NEGATIVE)
[2018-06-16] MEDS: GABAPENTIN 300MG CAPSULE PO SCH ×2 (13:54→21:46)
[2018-06-16] MEDS ORDERED: AMITRIPTYLINE 50MG TABLET PO SCH (21:00)
[2018-06-16] MEDS ORDERED: CEFTRIAXONE 2 G in DEXTROSE 5% WATER 50 ML IV SCH (23:00)
== END 2018-06-16 23:30 | disposition home or self-care (01) | DRG 721 ==
LOC: ER 18:00 → 6EST 23:04 → ENRESERV 06-16 00:05
PROVIDERS: ADMIT Internal Medicine; ATTEND Internal Medicine
DX: T85.79XA Infection and inflammatory reaction due to other internal prosthetic devices, implants and grafts, initial encounter (principal); N17.0 Acute kidney failure with tubular necrosis; E11.22 Type 2 diabetes mellitus with diabetic chronic kidney disease; E44.0 Moderate protein-calorie malnutrition; E66.01 Morbid (severe) obesity due to excess calories; R56.9 Unspecified convulsions; D64.9 Anemia, unspecified; E78.00 Pure hypercholesterolemia, unspecified; E78.5 Hyperlipidemia, unspecified; I12.9 Hypertensive chronic kidney disease with stage 1 through stage 4 chronic kidney disease, or unspecified chronic kidney disease; K21.9 Gastro-esophageal reflux disease without esophagitis; L02.211 Cutaneous abscess of abdominal wall; L03.311 Cellulitis of abdominal wall; N18.9 Chronic kidney disease, unspecified; M10.9 Gout, unspecified; Y83.2 Surgical operation with anastomosis, bypass or graft as the cause of abnormal reaction of the patient, or of later complication, without mention of misadventure at the time of the procedure; Z86.19 Personal history of other infectious and parasitic diseases; Z90.49 Acquired absence of other specified parts of digestive tract; Z79.899 Other long term (current) drug therapy; Z68.42 Body mass index [BMI] 45.0-49.9, adult
CPT/HCPCS: 36415; 71045; 74176; 80053; 80305; 82565; 82962; 83690; 85025; 85610; 87040; 87070; 87205; 93005; J0696; J2270; J2405; J3370; J3490; J7030; J7060

== ENCOUNTER 2018-08-10 06:27 | Inpatient (IN) | payer MEDICAID ==
[~2018-08-10] VITALS: Ht 167.6 cm; Wt 145.1 kg
[~2018-08-10 06:27] MED LIST changes: +ACET-2708 MT; +ATOR40TA70 MT
[2018-08-10] MEDS ORDERED: LACTATED RINGERS 1,000 ML IV SCH (07:45)
[2018-08-10] MEDS ORDERED: ONDANSETRON HCL 4MG/2ML INJ ONE (08:33)
[2018-08-10] MEDS ORDERED: METOCLOPRAMIDE HCL 10MG/2ML VIAL ONE (08:33)
[2018-08-10] MEDS ORDERED: LIDOCAINE HCL/PF 1% 10 MG/ML 5ML VIAL ONE (08:33)
[2018-08-10] MEDS ORDERED: KETOROLAC 30MG/ML VIAL ONE (08:33)
[2018-08-10] MEDS ORDERED: SODIUM CHLORIDE 0.9% 10ML VIAL ONE (08:34)
[2018-08-10] MEDS ORDERED: MIDAZOLAM HCL 2 MG/2 ML VIAL ONE (08:39)
[2018-08-10] MEDS ORDERED: FENTANYL CITRATE/PF 50MCG/ML 2ML VIAL ONE (08:39)
[2018-08-10] MEDS ORDERED: PROPOFOL 200MG/20ML VIAL IV ONE (08:40)
[2018-08-10] MEDS ORDERED: LIDOCAINE HCL 1% 20ML VIAL (Pyxis) INJ ONE ×2 (08:48→10:39)
[2018-08-10] MEDS ORDERED: ONDANSETRON HCL 4MG/2ML INJ IV PRN ×2 (09:00→11:00)
[2018-08-10] MEDS ORDERED: BUPIVACAINE HCL/PF 0.5% (5MG/ML) 10ML ONE ×2 (09:27→09:28)
[2018-08-10] MEDS ORDERED: BACITRACIN 50,000 UNITS/VIAL ONE (09:29)
[2018-08-10] MEDS ORDERED: NORMAL SALINE 0.9% 10 ML SYR ONE (09:31)
[2018-08-10] MEDS ORDERED: HYDRALAZINE 20MG/ML VIAL ONE (10:04)
[2018-08-10] MEDS ORDERED: GLYCOPYRROLATE 0.2 MG/ML 2ML VIAL ONE (10:36)
[2018-08-10] MEDS ORDERED: METO-385 PO (10:37)
[2018-08-10] MEDS ORDERED: OXYB5TAB11 PO (10:37)
[2018-08-10] MEDS ORDERED: NAPR-681 PO (10:37)
[2018-08-10] MEDS ORDERED: HYDROMORPHONE HCL/PF 2MG/ML CPJ IV PRN (11:00)
[2018-08-10] MEDS ORDERED: MEPERIDINE HCL/PF 25MG/ML CPJ IV PRN (11:00)
[2018-08-10 12:00] VITALS: BP 144/83
[2018-08-10 12:16] VITALS: BP 144/83
[2018-08-10] MEDS ORDERED: MORPHINE SULFATE 4 MG/ML CPJ (NOT FOR IM USE) IV PRN (13:00)
[2018-08-10] MEDS ORDERED: HYDROCODONE/ACETAMINOPHEN 5/325MG TABLET PO PRN (13:00)
[2018-08-10] MEDS: DEXT 5%/0.45% NACL KCL 20MEQ/L 1,000 ML IV SCH (15:38)
[2018-08-10 16:00] VITALS: BP 121/62
[2018-08-10 20:00] VITALS: BP 111/61
[2018-08-10] MEDS: MORPHINE SULFATE 4 MG/ML CPJ (NOT FOR IM USE) IV PRN (21:21)
[2018-08-11 00:14] VITALS: BP 120/65
[2018-08-11] MEDS: DEXT 5%/0.45% NACL KCL 20MEQ/L 1,000 ML IV SCH (00:27)
[2018-08-11] MEDS: MORPHINE SULFATE 4 MG/ML CPJ (NOT FOR IM USE) IV PRN (03:17)
[2018-08-11 04:00] VITALS: BP 140/72
[2018-08-11] MEDS: HYDROCODONE/ACETAMINOPHEN 5/325MG TABLET PO PRN ×2 (06:26→11:08)
[2018-08-11 08:00] VITALS: BP 140/75
[2018-08-11 10:43] VITALS: BP 140/75
[2018-08-11 12:00] VITALS: BP 136/74
== END 2018-08-11 12:30 | disposition home health service (06) | DRG 711 ==
LOC: OR 06:27 → 6EST 06:28
PROVIDERS: ADMIT Surgery; ATTEND Surgery
PROC: 0WBF0ZZ Excision of Abdominal Wall, Open Approach (ICD-10-PCS; 2018-08-10)
PROC: 05HG33Z Insertion of Infusion Device into Right Hand Vein, Percutaneous Approach (ICD-10-PCS; 2018-08-10)
PROC: B54MZZA Ultrasonography of Right Upper Extremity Veins, Guidance (ICD-10-PCS; 2018-08-10)
PROC: 0WPF0JZ Removal of Synthetic Substitute from Abdominal Wall, Open Approach (ICD-10-PCS; principal; 2018-08-10 11:30)
DX: T81.49XA Infection following a procedure, other surgical site, initial encounter (principal); T85.9XXA Unspecified complication of internal prosthetic device, implant and graft, initial encounter; Y83.8 Other surgical procedures as the cause of abnormal reaction of the patient, or of later complication, without mention of misadventure at the time of the procedure; Y92.89 Other specified places as the place of occurrence of the external cause
CPT/HCPCS: 36569; 71045; 76937; 87070; 87075; 87076; 87077; 87186; 88304; 93005; A4216; C1725; C1769; J0360; J1885; J2250; J2270; J2405; J2704; J2765; J3010; J3490; J7120

== ENCOUNTER 2018-08-30 15:06 | Emergency (ER) | payer MEDICAID ==
[~2018-08-30] VITALS: Ht 167.6 cm; Wt 136.5 kg
[~2018-08-30 15:06] MED LIST changes: -AMIT25TA9 PO; -COLC0.6T2 PO; -LOSA50TA20 PO; +METO-385 PO; +NAPR-681 PO; +OXYB5TAB11 PO; -TRAM50TA94 PO
[2018-08-30] MEDS ORDERED: FAMO20TA8 MT (16:05)
[2018-08-30] MEDS ORDERED: AMIT25TA9 MT (16:05)
[2018-08-30 19:00] VITALS: BP 169/88
== END 2018-08-30 19:48 | disposition home or self-care (01) ==
LOC: ER 16:03
DX: Z46.82 Encounter for fitting and adjustment of non-vascular catheter (principal); Z48.00 Encounter for change or removal of nonsurgical wound dressing; K21.9 Gastro-esophageal reflux disease without esophagitis; I10 Essential (primary) hypertension; Z90.49 Acquired absence of other specified parts of digestive tract; Z98.890 Other specified postprocedural states
CPT/HCPCS: 99281

== ENCOUNTER 2018-10-03 05:20 | Inpatient (IN) | payer MEDICAID ==
[~2018-10-03] VITALS: Ht 162.6 cm; Wt 136.6 kg
[~2018-10-03 05:20] MED LIST changes: +AMIT25TA9 MT; +FAMO20TA8 MT
[2018-10-03] MEDS ORDERED: SODIUM CHLORIDE 0.9% 1,000 ML IV ONE ×2 (06:59→13:27)
[2018-10-03] MEDS ORDERED: KETOROLAC 30MG/ML VIAL IV STA (06:59)
[2018-10-03] MEDS ORDERED: FAMOTIDINE 20MG/2ML VIAL IV ONE (07:00)
[2018-10-03] MEDS ORDERED: MAGNESIUM/ALUMINUM HYDROXIDE/SIMETHICONE 30ML UDC PO ONE (07:00)
[2018-10-03] MEDS ORDERED: ONDANSETRON HCL 4MG/2ML INJ IV ONE (07:00)
[2018-10-03] MEDS ORDERED: SODIUM BICARBONATE 4% (2.4MEQ) 5ML VIAL IV ONE (13:34)
[2018-10-03] MEDS ORDERED: LIDOCAINE HCL 1% 20ML VIAL (Pyxis) INJ ONE (13:34)
[2018-10-03 14:52] LABS: HEMATOCRIT. 35.8 % (36.0-48.0); HEMOGLOBIN. 10.7 g/dL (12.0-16.0); MEAN CORPUSCULAR HEMOGLOBIN 20.3 pg (28.0-32.0); RED BLOOD CELL COUNT 5.27 mill/uL (4.2-5.4); RED CELL DISTRIBUTION WIDTH 21.9 % (11.6-14.6)
[2018-10-03 14:57] LABS: CHLORIDE 111 mEq/L (98-107)
[2018-10-03 15:00] LABS: ETHANOL BLOOD < 10 mg/dL
[2018-10-03 15:18] LABS: PLATELET ESTIMATE NORMAL
[2018-10-03 15:19] LABS: PLATELET 211 x1000/uL (130-400)
[2018-10-04 03:40] VITALS: BP 130/93
[2018-10-04 04:40] VITALS: BP 130/93
[2018-10-04] MEDS ORDERED: ONDANSETRON HCL 4MG/2ML INJ IV PRN (06:45)
[2018-10-04] MEDS ORDERED: MAGNESIUM/ALUMINUM HYDROXIDE/SIMETHICONE 30ML UDC PO PRN (06:45)
[2018-10-04] MEDS ORDERED: ACETAMINOPHEN 325MG TABLET PO PRN (06:45)
[2018-10-04] MEDS ORDERED: IPRATROPIUM/ALBUTEROL 0.5-3(2.5)MG/3ML NEB INH PRN (06:45)
[2018-10-04] MEDS ORDERED: CLONIDINE 0.1MG TABLET PO PRN (06:45)
[2018-10-04 08:00] VITALS: BP 132/68
[2018-10-04] MEDS: PIPERACILLIN/TAZ 3.375G PREMIX 50 ML IV SCH ×4 (08:07→23:51)
[2018-10-04] MEDS: HYDROMORPHONE HCL/PF 2MG/ML CPJ IV PRN ×2 (08:08→17:21)
[2018-10-04] MEDS: SODIUM CHLORIDE 0.9% 1,000 ML IV SCH ×2 (08:08→22:00)
[2018-10-04] MEDS ORDERED: VANCOMYCIN 2,000 MG in DEXT 5% WATER 500 ML IV SCH (09:00)
[2018-10-04] MEDS: THIAMINE HCL 100MG TABLET PO SCH (09:10)
[2018-10-04 09:50] LABS: BASOPHILS % 0.6 % (0.0-2.0); EOSINOPHILS % 6.1 % (0.0-5.0); HEMATOCRIT. 33.4 % (36.0-48.0); LYMPHOCYTES % 15.8 % (20.0-50.0); MEAN CORPUSCULAR HEMOGLOBIN 20.6 pg (28.0-32.0); MEAN CORPUSCULAR VOLUME 68.9 fL (81.0-99.0); MEAN PLATELET VOLUME 9.1 fl (7.4-10.4); MONOCYTES % 11.1 % (2.0-8.0); NEUTROPHILS % 66.4 % (40.0-76.0); PLATELET 212 x1000/uL (130-400); RED BLOOD CELL COUNT 4.84 mill/uL (4.2-5.4); RED CELL DISTRIBUTION WIDTH 21.9 % (11.6-14.6)
[2018-10-04 10:21] LABS: CHLORIDE 112 mEq/L (98-107)
[2018-10-04 10:30] LABS: CREATINE KINASE 73 IU/L (26-192)
[2018-10-04 10:32] LABS: CREATINE KINASE MB FRACTION < 1.0 ng/mL (0.5-3.6)
[2018-10-04 12:00] VITALS: BP 113/66
[2018-10-04 13:57] LABS: CREATINE KINASE 71 IU/L (26-192)
[2018-10-04 13:59] LABS: CREATINE KINASE MB FRACTION < 1.0 ng/mL (0.5-3.6)
[2018-10-04] MEDS: NYSTATIN POWDER 15GM TOP SCH ×2 (14:11→17:19)
[2018-10-04] MEDS: DILTIAZEM HCL 30MG TABLET PO SCH ×2 (14:12→21:59)
[2018-10-04 16:00] VITALS: BP 119/73
[2018-10-04 20:00] VITALS: BP 131/66
[2018-10-05] VITALS: BP 128/77
[2018-10-05 04:00] VITALS: BP 110/59
[2018-10-05] MEDS: HYDROMORPHONE HCL/PF 2MG/ML CPJ IV PRN ×2 (04:38→11:55)
[2018-10-05] MEDS: DILTIAZEM HCL 30MG TABLET PO SCH (05:33)
[2018-10-05] MEDS: PIPERACILLIN/TAZ 3.375G PREMIX 50 ML IV SCH ×3 (05:33→17:13)
[2018-10-05 08:00] VITALS: BP 146/80
[2018-10-05 08:22] LABS: BASOPHILS % 0.9 % (0.0-2.0); EOSINOPHILS % 7.1 % (0.0-5.0); HEMATOCRIT. 28.8 % (36.0-48.0); HEMOGLOBIN. 8.8 g/dL (12.0-16.0); LYMPHOCYTES % 15.4 % (20.0-50.0); MEAN CORPUSCULAR HEMOGLOBIN 21.2 pg (28.0-32.0); MONOCYTES % 11.9 % (2.0-8.0); NEUTROPHILS % 64.7 % (40.0-76.0); PLATELET 177 x1000/uL (130-400); RED BLOOD CELL COUNT 4.17 mill/uL (4.2-5.4); RED CELL DISTRIBUTION WIDTH 21.7 % (11.6-14.6)
[2018-10-05] MEDS: NYSTATIN POWDER 15GM TOP SCH ×3 (09:39→17:13)
[2018-10-05] MEDS: SODIUM CHLORIDE 0.9% 1,000 ML IV SCH (09:40)
[2018-10-05] MEDS: THIAMINE HCL 100MG TABLET PO SCH (09:40)
[2018-10-05] MEDS ORDERED: VANCOMYCIN 2,000 MG in DEXT 5% WATER 500 ML IV NR (11:00)
[2018-10-05 11:58] LABS: CLARITY URINE CLEAR (CLEAR); COLOR URINE YELLOW (YELLOW); KETONES URINE NEGATIVE (NEGATIVE); LEUKOCYTE ESTERASE URINE 1+ (NEGATIVE); NITRITE URINE NEGATIVE (NEGATIVE); OCCULT BLOOD URINE NEGATIVE (NEGATIVE); PROTEIN URINE TRACE (NEGATIVE); SPECIFIC GRAVITY URINE 1.015 (1.005-1.030); UROBILINOGEN URINE 0.2 E.U./dL (0.2-1.0)
[2018-10-05 12:00] VITALS: BP 118/69
[2018-10-05 13:10] LABS: *AMPHETAMINES SCREEN URINE NEGATIVE (NEGATIVE); *BENZODIAZEPINES SCREEN URINE NEGATIVE (NEGATIVE); *COCAINE SCREEN URINE NEGATIVE (NEGATIVE)
[2018-10-05 13:11] LABS: CANNABINOID URINE SCREEN NEGATIVE (NEGATIVE); METHADONE URINE SCREEN NEGATIVE (NEGATIVE); OPIATES URINE SCREEN PRESUMTIVE POSITIVE (NEGATIVE); PHENCYCLIDINE URINE SCREEN NEGATIVE (NEGATIVE)
[2018-10-05 13:38] LABS: *BARBITURATES SCREEN URINE NEGATIVE (NEGATIVE)
[2018-10-05] MEDS: DILTIAZEM HCL 120MG CAPSULE CD 24HR PO SCH (14:41)
[2018-10-05] MEDS: ZINC SULFATE 220 MG ( 50 ) CAPSULE PO SCH (14:42)
[2018-10-05] MEDS: FOLIC ACID/VITAMIN B COMP W-C TABLET PO SCH (14:42)
[2018-10-05 16:00] VITALS: BP 123/81
[2018-10-05 20:00] VITALS: BP 122/57
[2018-10-05] MEDS: ASCORBIC ACID 250 MG TABLET PO SCH (21:43)
[2018-10-06] VITALS: BP 134/65
[2018-10-06] MEDS: PIPERACILLIN/TAZ 3.375G PREMIX 50 ML IV SCH ×5 (00:55→23:25)
[2018-10-06] MEDS: SODIUM CHLORIDE 0.9% 1,000 ML IV SCH ×3 (00:56→12:20)
[2018-10-06] MEDS: HYDROMORPHONE HCL/PF 2MG/ML CPJ IV PRN ×5 (03:54→23:25)
[2018-10-06 04:00] VITALS: BP 142/68
[2018-10-06 08:00] VITALS: BP 126/65
[2018-10-06] MEDS: ASCORBIC ACID 250 MG TABLET PO SCH ×2 (08:44→21:46)
[2018-10-06] MEDS: FOLIC ACID/VITAMIN B COMP W-C TABLET PO SCH (08:44)
[2018-10-06] MEDS: THIAMINE HCL 100MG TABLET PO SCH (08:45)
[2018-10-06] MEDS: ZINC SULFATE 220 MG ( 50 ) CAPSULE PO SCH (08:45)
[2018-10-06] MEDS: DILTIAZEM HCL 120MG CAPSULE CD 24HR PO SCH (08:45)
[2018-10-06] MEDS: NYSTATIN POWDER 15GM TOP SCH ×3 (08:46→18:21)
[2018-10-06 11:12] LABS: EOSINOPHILS % 7.4 % (0.0-5.0); HEMOGLOBIN. 9.3 g/dL (12.0-16.0); LYMPHOCYTES % 20.9 % (20.0-50.0); MEAN CORPUSCULAR HEMOGLOBIN 20.7 pg (28.0-32.0); MEAN CORPUSCULAR VOLUME 68.8 fL (81.0-99.0); MEAN PLATELET VOLUME 9.1 fl (7.4-10.4); MONOCYTES % 12.2 % (2.0-8.0); NEUTROPHILS % 58.5 % (40.0-76.0); PLATELET 200 x1000/uL (130-400); RED BLOOD CELL COUNT 4.51 mill/uL (4.2-5.4); RED CELL DISTRIBUTION WIDTH 21.9 % (11.6-14.6)
[2018-10-06 12:16] VITALS: BP 139/72
[2018-10-06 16:00] VITALS: BP 134/65
[2018-10-06 20:07] VITALS: BP 126/69
[2018-10-07] VITALS (7 sets, daily range): BP systolic 128–158; BP diastolic 51–94
[2018-10-07] MEDS: SODIUM CHLORIDE 0.9% 1,000 ML IV SCH ×2 (02:06→13:00)
[2018-10-07] MEDS: HYDROMORPHONE HCL/PF 2MG/ML CPJ IV PRN ×4 (04:55→20:00)
[2018-10-07] MEDS: PIPERACILLIN/TAZ 3.375G PREMIX 50 ML IV SCH ×2 (06:18→11:49)
[2018-10-07 08:33] LABS: BASOPHILS % 0.7 % (0.0-2.0); EOSINOPHILS % 6.7 % (0.0-5.0); HEMATOCRIT. 30.8 % (36.0-48.0); HEMOGLOBIN. 9.4 g/dL (12.0-16.0); LYMPHOCYTES % 15.7 % (20.0-50.0); MEAN CORPUSCULAR HEMOGLOBIN 20.9 pg (28.0-32.0); MEAN CORPUSCULAR VOLUME 68.8 fL (81.0-99.0); MEAN PLATELET VOLUME 8.7 fl (7.4-10.4); MONOCYTES % 9.8 % (2.0-8.0); NEUTROPHILS % 67.1 % (40.0-76.0); PLATELET 195 x1000/uL (130-400); RED BLOOD CELL COUNT 4.48 mill/uL (4.2-5.4); RED CELL DISTRIBUTION WIDTH 21.9 % (11.6-14.6)
[2018-10-07] MEDS: THIAMINE HCL 100MG TABLET PO SCH (10:00)
[2018-10-07] MEDS: FOLIC ACID/VITAMIN B COMP W-C TABLET PO SCH (10:00)
[2018-10-07] MEDS: ASCORBIC ACID 250 MG TABLET PO SCH ×2 (10:00→20:05)
[2018-10-07] MEDS: DILTIAZEM HCL 120MG CAPSULE CD 24HR PO SCH (10:00)
[2018-10-07] MEDS: ZINC SULFATE 220 MG ( 50 ) CAPSULE PO SCH (10:04)
[2018-10-07] MEDS: NYSTATIN POWDER 15GM TOP SCH ×3 (10:05→17:44)
[2018-10-07] MEDS ORDERED: SODIUM POLYSTYRENE SULFONATE 15 G/60 ML BOT PO NR (11:00)
[2018-10-07] MEDS ORDERED: VANCOMYCIN 1 G PREMIX 200 ML IV SCH (11:00)
[2018-10-07] MEDS ORDERED: DOCUSATE SODIUM 100MG CAPSULE PO PRN (12:00)
[2018-10-07] MEDS: PIPERACILLIN/TAZ 2.25G PREMIX 50 ML IV SCH ×2 (17:42→23:33)
[2018-10-07] MEDS: ALLOPURINOL 100 MG TABLET PO SCH (19:53)
[2018-10-08] VITALS: BP 142/59
[2018-10-08] MEDS: HYDROMORPHONE HCL/PF 2MG/ML CPJ IV PRN ×5 (01:54→19:50)
[2018-10-08 04:00] VITALS: BP 151/76
[2018-10-08] MEDS: PIPERACILLIN/TAZ 2.25G PREMIX 50 ML IV SCH ×2 (05:02→12:03)
[2018-10-08 07:36] LABS: BASOPHILS % 0.5 % (0.0-2.0); EOSINOPHILS % 6.8 % (0.0-5.0); HEMATOCRIT. 29.2 % (36.0-48.0); HEMOGLOBIN. 8.9 g/dL (12.0-16.0); LYMPHOCYTES % 20.3 % (20.0-50.0); MEAN CORPUSCULAR HEMOGLOBIN 21.1 pg (28.0-32.0); MEAN CORPUSCULAR VOLUME 68.8 fL (81.0-99.0); MEAN PLATELET VOLUME 8.7 fl (7.4-10.4); MONOCYTES % 10.7 % (2.0-8.0); NEUTROPHILS % 61.7 % (40.0-76.0); PLATELET 192 x1000/uL (130-400); RED BLOOD CELL COUNT 4.25 mill/uL (4.2-5.4); RED CELL DISTRIBUTION WIDTH 22.3 % (11.6-14.6)
[2018-10-08 08:00] VITALS: BP 103/64
[2018-10-08] MEDS: ALLOPURINOL 100 MG TABLET PO SCH (09:30)
[2018-10-08] MEDS: DILTIAZEM HCL 180MG CAPSULE CD 24HR PO SCH (09:30)
[2018-10-08] MEDS: ZINC SULFATE 220 MG ( 50 ) CAPSULE PO SCH (09:30)
[2018-10-08] MEDS: ASCORBIC ACID 250 MG TABLET PO SCH ×2 (09:30→21:10)
[2018-10-08] MEDS: FOLIC ACID/VITAMIN B COMP W-C TABLET PO SCH (09:30)
[2018-10-08] MEDS: THIAMINE HCL 100MG TABLET PO SCH (09:30)
[2018-10-08] MEDS: NYSTATIN POWDER 15GM TOP SCH ×3 (09:31→16:19)
[2018-10-08 12:00] VITALS: BP_SYST 103; BP_SYST 120; BP_DIAS 60; BP_DIAS 69
[2018-10-08 16:00] VITALS: BP 149/77
[2018-10-08] MEDS ORDERED: VANCOMYCIN 1 G PREMIX 200 ML IV SCH (16:00)
[2018-10-08] MEDS: SODIUM CHLORIDE 0.9% 1,000 ML IV SCH (16:18)
[2018-10-08] MEDS: HYDROCODONE/ACETAMINOPHEN 5/325MG TABLET PO PRN (16:22)
[2018-10-08 20:00] VITALS: BP 123/57
[2018-10-09] VITALS: BP 142/62
[2018-10-09] MEDS: HYDROCODONE/ACETAMINOPHEN 5/325MG TABLET PO PRN (02:27)
[2018-10-09 04:00] VITALS: BP 139/62
[2018-10-09 06:55] LABS: BASOPHILS % 0.8 % (0.0-2.0); HEMATOCRIT. 32.4 % (36.0-48.0); HEMOGLOBIN. 10.1 g/dL (12.0-16.0); LYMPHOCYTES % 20.3 % (20.0-50.0); MEAN CORPUSCULAR HEMOGLOBIN 21.4 pg (28.0-32.0); MEAN CORPUSCULAR VOLUME 69.1 fL (81.0-99.0); MEAN PLATELET VOLUME 8.6 fl (7.4-10.4); MONOCYTES % 8.8 % (2.0-8.0); NEUTROPHILS % 63.1 % (40.0-76.0); PLATELET 222 x1000/uL (130-400); RED BLOOD CELL COUNT 4.69 mill/uL (4.2-5.4); RED CELL DISTRIBUTION WIDTH 22.3 % (11.6-14.6)
[2018-10-09] MEDS: SODIUM CHLORIDE 0.9% 1,000 ML IV SCH (07:00)
[2018-10-09 08:00] VITALS: BP 168/80
[2018-10-09] MEDS: ALLOPURINOL 100 MG TABLET PO SCH (08:12)
[2018-10-09] MEDS: THIAMINE HCL 100MG TABLET PO SCH (08:12)
[2018-10-09] MEDS: ZINC SULFATE 220 MG ( 50 ) CAPSULE PO SCH (08:12)
[2018-10-09] MEDS: FOLIC ACID/VITAMIN B COMP W-C TABLET PO SCH (08:12)
[2018-10-09] MEDS: ASCORBIC ACID 250 MG TABLET PO SCH (08:12)
[2018-10-09] MEDS: NYSTATIN POWDER 15GM TOP SCH ×3 (08:13→17:00)
[2018-10-09] MEDS: DILTIAZEM HCL 180MG CAPSULE CD 24HR PO SCH (08:13)
[2018-10-09 12:00] VITALS: BP 155/84
[2018-10-09] MEDS ORDERED: ACETAMINOPHEN WITH CODEINE 300/30MG TABLET PO PRN (15:45)
[2018-10-09] MEDS ORDERED: PREDNISONE 20MG TABLET PO SCH (15:45)
[2018-10-09] MEDS ORDERED: ALLO100T MT (15:58)
[2018-10-09 16:00] VITALS: BP 169/84
[2018-10-09] MEDS ORDERED: DILT180C66 MT (16:02)
[2018-10-09] MEDS ORDERED: PRED10TA23 MT (16:03)
[2018-10-09] MEDS ORDERED: [UNRECOGNIZED DRUG - OTHER] (16:07)
[2018-10-09 16:09] VITALS: BP 148/78
== END 2018-10-09 18:39 | disposition home health service (06) | DRG 342 ==
LOC: ER 05:20 → 8WST 15:26 → EDBEDREQ 15:33 → EDBEDREQTM 15:33 → ENRESERV 10-04 01:51
PROVIDERS: ADMIT Internal Medicine; ATTEND Internal Medicine
PROC: 05H333Z Insertion of Infusion Device into Right Innominate Vein, Percutaneous Approach (ICD-10-PCS; principal; 2018-10-03)
PROC: B54MZZA Ultrasonography of Right Upper Extremity Veins, Guidance (ICD-10-PCS; 2018-10-03)
DX: S92.911A Unspecified fracture of right toe(s), initial encounter for closed fracture (principal); N17.0 Acute kidney failure with tubular necrosis; I48.91 Unspecified atrial fibrillation; E66.01 Morbid (severe) obesity due to excess calories; E87.1 Hypo-osmolality and hyponatremia; E44.0 Moderate protein-calorie malnutrition; G62.9 Polyneuropathy, unspecified; I13.0 Hypertensive heart and chronic kidney disease with heart failure and stage 1 through stage 4 chronic kidney disease, or unspecified chronic kidney disease; I50.32 Chronic diastolic (congestive) heart failure; D64.9 Anemia, unspecified; N18.3 Chronic kidney disease, stage 3 (moderate); X58.XXXA Exposure to other specified factors, initial encounter; E78.5 Hyperlipidemia, unspecified; M20.40 Other hammer toe(s) (acquired), unspecified foot; L85.3 Xerosis cutis; M10.9 Gout, unspecified; K21.9 Gastro-esophageal reflux disease without esophagitis; Z79.899 Other long term (current) drug therapy; Z90.49 Acquired absence of other specified parts of digestive tract; Y93.89 Activity, other specified; Y92.89 Other specified places as the place of occurrence of the external cause; Y99.8 Other external cause status; Z68.43 Body mass index [BMI] 50.0-59.9, adult
CPT/HCPCS: 36415; 36569; 71045; 73630; 76770; 76937; 80048; 80202; 80305; 82550; 82553; 82570; 83880; 84134; 84156; 84443; 84484; 84550; 85379; 86038; 87077; 87186; 93005; 93306; 93970; 97116; 97162; 97530; 99285; C1725; G0482; J1170; J1885; J2405; J2543; J3370; J3490; J7030; J7060; J7512; J7620